=== PATIENT | male | born 1965 | race Caucasian/White ===

== ENCOUNTER → 2016-07-05 | Outpatient (CLI) | payer BC ==
--- NOTE | 2016-07-05 17:18 | MR ---
EXAMINATION TYPE: MR knee RT wo con DATE OF EXAM: 07/05/2016 10:48 AM COMPARISON: Outside radiographs 06/20/2016 HISTORY: 51-year-old male internal derangement of knee, right knee pain TECHNIQUE: Multiplanar, multisequence imaging of the right knee is performed without IV contrast. FINDINGS: ACL, PCL, and LCL complex appear intact. There is mild soft tissue edema on either side of the intact MCL. The medial meniscus is diffusely degenerated and torn with reactive marrow edema along the periphery of the medial tibial plateau. There is mild to moderate irregular cartilage thinning along the mid we ightbearing and peripheral medial compartment. There is degenerative signal along the posterior horn of the lateral meniscus without discrete menisc al tear. Preserved lateral compartment articular cartilage volume. There is bony irregularity and cystic change along the posterior margin of the tibial plateau close t o the insertion of the PCL with an adjacent 1.3 cm ossified loose body. There is marginal spurring within the patellofemoral compartment with mild diffuse thinning of trochl ear articular cartilage. There is physiologic joint fluid without any significant Che's cyst. Extensor mechanism is intact. Nonspecific mild anterior soft tissue swelling. Normal popliteal artery anatomy and muscle bulk. No suspicious bone marrow replacement. There is mild effusion within the MCL semimembranosus bursa IMPRESSION: 1. Diffusely degenerative and torn medial meniscus with mild to moderate irregular cartilage thinning in the medial compartment. There is reactive bone marrow edema along the periphery of the medial tib ial plateau. 2. Grade 1 MCL sprain. 3. Some degenerative signal in the posterior horn of the lateral meniscus without discrete tear. 4. Mild patellofemoral compartmental osteoarthrosis. 5. Some bony irregularity along the posterior margin of the tibial plateau may represent sequela of r emote trauma. There is also a 1.3 cm bony loose body posteriorly.
== END | disposition home or self-care (01) ==
LOC: RADMRIMAIN 10:10
PROVIDERS: ATTEND Family Medicine
DX: M23.203 Derangement of unspecified medial meniscus due to old tear or injury, right knee (principal); M17.11 Unilateral primary osteoarthritis, right knee